=== PATIENT | female | born 1965 | race Caucasian/White ===

== ENCOUNTER 2020-05-04 17:55 | Observation (INO) | payer BC, SELFPAY ==
[2020-05-04 17:56] VITALS: BP 152/88; PULSE 92; PULSE 96; RESP 16; RESP 18; TEMP 35.9; O2SAT 95; O2SAT 96; BMI 45.4
--- NOTE | 2020-05-04 18:10 | ED.VIS.GEN ---
History of Present Illness Chief Complaint: Cellulitis Narrative: Patient presents with right lower extremity pain and edema that started earlier this morning she even had a temperature at home up to 103. She denies cough congestion abdominal pain or urinary symptoms. She has had similar symptoms in the past and had cellulitis and and that being hospitalized. She is not a diabetic. No known trauma. Past medical history: None Medications: Detrol Social history: Noncontributory Review of systems: All systems negative except as indicated General: Fever as in HPI Eyes: Denies: Visual changes - bilaterally ENT: Denies: Rhinorrhea, Sore throat Cardiovascular: Denies: Chest pain Respiratory: Denies: Dyspnea, Cough Gastrointestinal: Denies: Abdominal pain, Nausea, Vomiting Genitourinary: Denies: Dysuria Musculoskeletal: Right lower extremity pain and edema Skin: Rash as in HPI Neurological: Denies: Headache, no focal weakness Psych: Reports: negative Hematologic: Denies: Easy bruising, Easy bleeding Physical exam General: Well nourished, Well developed, she appears somewhat anxious Head: Normocephalic, Atraumatic Eyes: Conjunctiva not pale ENT: Moist mucous membranes Neck: Supple, Nontender, No lymphadenopathy Cardiovascular: Regular rate, Regular rhythm Respiratory: No distress, CTA bilaterally Abdomen: Soft, Nontender, Nondistended Back: Nontender, Normal Inspection. Negative for: CVA tenderness Extremities: Right lower extremity has erythema and swelling, there is quite a bit of calor. No crepitus. The cellulitis starts at the ankle and extends to about the knee. No current lymphangitic streaking. Skin: Cellulitis as above otherwise normal Neurological: Alert, Normal Strength, Normal Sensation Psychological: Slightly anxious Past Medical History - Allergies and Home Meds Allergies/Adverse Reactions: Allergies No Known Allergies Allergy (Verified 05/04/20 18:00) Primary Care Physician: Erickson Molina DO [Primary Care Provider] - Physical Exam Vital Signs/Narrative: Vital Signs Temp Pulse Resp BP Pulse Ox 05/04/20 17:56 96.7 F L 96 18 152/88 H 96 Diagnostic/Tx/Re-eval - Medical Decision Making Patient has only mild leukocytosis she was started on IV antibiotics DVT study is negative. Patient will be treated for IV antibiotic treatment ED Disposition - Plan for ED Patient: Disposition: Home or Assisted Living Diagnosis: Cellulitis Referrals: Erickson Molina DO [Primary Care Provider] -
--- NOTE | 2020-05-04 18:13 | US_ITS ---
STUDY: VENOUS DOPPLER ULTRASOUND - RIGHT LOWER EXTREMITY REASON FOR EXAM: Female, 54 years old. RT LOWER LEG CELLULITIS TODAY REDNESS TECHNIQUE: Ultrasound evaluation of the deep vein system to include diego-scale imaging and compression was performed. Diego-scale imaging and Doppler sonographic evaluation, including duplex spectral analysis and qualitative color flow sonography, was performed. COMPARISON: None. FINDINGS: Common femoral, femoral and popliteal veins are patent with no evidence of luminal thrombus. Deep venous structures respond normally to compression and augmentation maneuvers. Normal color Doppler. Visualized calf veins are patent. US/Venous Duplex Imag/Limited/Uni IMPRESSION: Normal venous Doppler ultrasound of the lower extremity. Electronically Signed: Adelina Logan MD at 19:57 EST Tel , Service support ,
[2020-05-04 18:38] LABS: Absolute Lymphocyte Count 2.51 X10^3/uL (0.83-4.51); Absolute Neutrophil Count 7.7 X10^3/uL (2.0-7.7); Basophil# 0.05 X10^3/uL; Basophil% 0.4 % (0-1); Eosinophil# 0.03 X10^3/uL; Eosinophils% 0.3 % (0-5); Hematocrit 42.9 % (37-47); Hemoglobin 14.6 g/dL (12.0-15.0); Lymphocyte # 2.51 X10^3/ul (4.0); Lymphocyte % 21.9 % (19-41); Mean Corpuscular Hgb 30.7 pg (27.0-32.0); Mean Corpuscular Volume 90.1 fL (81-99); Mean Platelet Vol. 9.5 fl (6.2-12.0); Monocyte# 1.09 X10^3/uL; Monocyte% 9.5 % (0-10); NRBC Flagged by Analyzer 0 % (0-5); Neutrophil % 67.4 % (47-70); Platelet Count 213 K/mm3 (150-450); RBC Distribution Width CV 12.3 % (11.6-14.6); RBC Distribution Width SD 40.6 fl (35.1-43.9); Red Blood Count 4.76 M/mm3 (4.2-5.4); White Blood Count 11.4 K/mm3 (4.4-11.0)
[2020-05-04 18:57] LABS: ALB/GLOB Ratio 0.8 RATIO (0.9-2.4); AST(SGOT) 16 U/L (15-37); Alanine Aminotransfer ALT/SGPT 87 U/L (13-56); Albumin, Serum 3.3 g/dL (3.2-5.0); Alkaline Phosphatase 106 U/L (45-117); Anion Gap 5 (5-15); BUN 10 mg/dL (7-18); BUN/Creat Ratio 11.3 RATIO (10-20); Chloride 104 mmol/L (98-107); Creatinine, Serum 0.89 mg/dL (0.55-1.02); EST Glomerular Filtration Rate 70 mL/min (>60); Est Glom Filt Rate - Afr Amer 85 mL/min (>60); Estimated Creatinine Clearance 66.07 ml/min; Glucose 381 mg/dL (74-106); Potassium 3.5 mmol/L (3.5-5.1); Protein, Total 7.3 g/dL (6.4-8.2); Sodium Level 134 mmol/L (136-145)
--- NOTE | 2020-05-04 19:39 | HP.PCM_ITS ---
History of Present Illness Date of Admission: 05/04/20 The patient is a 54 year old F with no significant PMH who was admitted via the ED on 05/04/2020 with a complaint of redness and pain of her left leg, and has progressed up to her knee. She had fever of ~100F at home, and review of systems was otherwise negative. Duplex of hte LE was negative. SHe has previously had cellulitis of the LLE before, and had to be admitted on antibiotics for 5 days. Review of systems was otherwise negative. In the ED, Vitals were temp of 96.7F, with ME of 96,. RR of 18 and BP of 152/88/ Chemistry was unrearkable, and CBC showed wbc of 11.4, but was otherwise unremarkable. As mentioned, duplex of the lower extremities were negative for any DVT. She is being admitted to be managed for cellulitis of the left lower extremity. Of note, she doesn't have a history of diabetes. [] Past Medical History Allergies No Known Allergies Allergy (Verified 05/04/20 18:00) Home Medications: Ambulatory Orders Medication Instructions Recorded Tolterodine Tartrate [Tolterodine 4 mg PO DAILY 05/04/20 Tartrate ER] Cephalexin [Keflex] 500 mg PO Q6 #28 cap 05/05/20 Surgical History: no surgical history Psychiatric History: No pertinent psych hx Lives: With Family Smoking Status: Never smoker Tobacco Use: Non-smoker Alcohol: None Drugs: None Review of Systems Constitutional: Reports: Fever. Denies: Chills, Malaise, Weakness, Weight Xiomara nge HEENT: Denies: Head Aches, Sinus Congestion, Sinus Drainage Cardiovascular: Denies: Chest Pain, Palpitations Respiratory: Denies: Cough, Shortness of Breath, Shortness of breath at rest, Sputum production Gastrointestinal: Denies: Abdominal Pain, Nausea, Vomiting Genitourinary: Denies: Dysuria Musculoskeletal: Denies: Joint Pain, Joint Tenderness Skin: Reports: - - redness and pain of LLE, with differential warmth Neurological: Denies: Numbness, Tingling, Focal weakness Psychiatric: Denies: Anxiety, Depression, Homicidal Ideations, Suicidal Ideations Hematologic/ Lymphatic: Denies: Easy Bruising, Easy Bleeding VTE Information - Inpt Only VTE Present on Admission: No VTE Pharm Prophylaxis ordered?: Yes Patient Problems: Active and Suspected Problems Cellulitis (Acute) - Physical Exam Vitals/I&O's: Vital Signs Temp Pulse Resp BP Pulse Ox 96.7 F L 96 18 152/88 H 96 05/04/20 17:56 05/04/20 17:56 05/04/20 17:56 05/04/20 17:56 05/04/20 17:56 Oxygen Delivery Method Room Air Weight: 281 lb 8.485 oz Body Mass Index (BMI) 45.4 General: Alert, Oriented x3, Cooperative HEENT: Atraumatic, PERRLA, EOMI, Normocephalic Neck: Supple, No JVD, Negative Carotid Bruits Lungs: Clear to auscultation, Normal air movement Cardiovascular: Regular rate, Regular Rhythm, Normal S1, Normal S2, No murmurs Abdomen: Bowel Sounds Present, Soft, Non Tender Extremities: No edema, Capillary Refill Less than 3 Seconds Skin: No rashes, No breakdown, - - LLE erythematous, differential warmth, tender from foot up to knee Musculoskeletal: No Tenderness to Palpation of Joints or Extremities Neurological: Cranial nerves II-XII grossly intact, Neuro grossly intact, Motor Exam 5/5 strength throughout Psych/Mental Status: Normal Affect, Appropriate, Alert and oriented to time, place, person, mood and affect Laboratory Results 05/04/20 18:30: WBC 11.4 H, RBC 4.76, Hgb 14.6, Hct 42.9, MCV 90.1, MCH 30.7, MCHC 34.0, RDW Std Deviation 40.6, RDW Coeff of Lencho 12.3, Plt Count 213, MPV 9.5, Immature Gran % (Auto) 0.500, Neut % (Auto) 67.4, Lymph % (Auto) 21.9, Worth % (Auto) 9.5, Eos % (Auto) 0.3, Baso % (Auto) 0.4, Absolute Neuts (auto) 7.7, Absolute Lymphs (auto) 2.51, Nucleated RBC % 0 05/04/20 18:30: Sodium 134 L, Potassium 3.5, Chloride 104, Carbon Dioxide 25.0, Anion Gap 5, BUN 10, Creatinine 0.89, Estim Creat Clear Calc 66.07, Est GFR (MDRD) Af Amer 85, Est GFR (MDRD) Non-Af 70, BUN/Creatinine Ratio 11.3, Glucose 381 H, Calcium 9.0, Total Bilirubin 1.10 H, AST 16, ALT 87 H, Alkaline Phosphatase 106, Total Protein 7.3, Albumin 3.3, Globulin 4.0, Albumin/Globulin Ratio 0.8 L Assessment/Plan All Active Problems Cellulitis (Acute) 54 y/oa dmitted with a complaint of redness and pain of LLE #Cellulitis of the LLE * Admit to MedSurg. * Will start on IV vancomycin. * Get blood cultures. * Tylenol for pain. * VT prophylaxis: Lovenox Inpatient E&M: 77038 Init Hosp L2
[2020-05-04 19:55] VITALS: BMI 45.4
[2020-05-04 20:00] VITALS: BP 124/69; PULSE 71; RESP 16; TEMP 36.8; O2SAT 97
[2020-05-04 20:04] VITALS: BMI 45.7
[2020-05-04 21:12] VITALS: BP 132/68; PULSE 80; RESP 16; TEMP 36.9; O2SAT 98
[2020-05-04] MEDS: 0.9% Normal Saline 1,000 ML 100 ML IV (21:42)
[2020-05-04] MEDS: 0.9% Saline Lock 10 ML Syringe IV (21:47)
[2020-05-04] MEDS: Acetaminophen 325 MG Tablet 650 MG PO (21:51)
[2020-05-04 23:59] VITALS: PULSE 73
[2020-05-05 03:00] VITALS: PULSE 71
[2020-05-05 03:12] VITALS: BP 121/69; PULSE 77; RESP 16; TEMP 36.9; O2SAT 98
[2020-05-05 05:53] LABS: Absolute Neutrophil Count 4.5 X10^3/uL (2.0-7.7); Basophil# 0.04 X10^3/uL; Basophil% 0.5 % (0-1); Eosinophil# 0.21 X10^3/uL; Eosinophils% 2.9 % (0-5); Hematocrit 40.6 % (37-47); Hemoglobin 13.1 g/dL (12.0-15.0); Lymphocyte % 23.3 % (19-41); Mean Corp Hgb Conc 32.3 g/dL (32-36); Mean Corpuscular Hgb 30.3 pg (27.0-32.0); Mean Platelet Vol. 9.5 fl (6.2-12.0); Monocyte# 0.88 X10^3/uL; Monocyte% 12.1 % (0-10); NRBC Flagged by Analyzer 0 % (0-5); Neutrophil # 4.45 X10^3/uL (2.7-7.7); Neutrophil % 60.9 % (47-70); Platelet Count 174 K/mm3 (150-450); RBC Distribution Width CV 12.4 % (11.6-14.6); RBC Distribution Width SD 43.2 fl (35.1-43.9); Red Blood Count 4.32 M/mm3 (4.2-5.4); White Blood Count 7.3 K/mm3 (4.4-11.0)
[2020-05-05 06:00] VITALS: PULSE 75
[2020-05-05 06:20] LABS: BUN 10 mg/dL (7-18); Creatinine, Serum 0.46 mg/dL (0.55-1.02); Estimated Creatinine Clearance 122.88 ml/min; Glucose 251 mg/dL (74-106)
[2020-05-05 06:21] LABS: Anion Gap 7 (5-15); BUN/Creat Ratio 21.5 RATIO (10-20); Calcium,Total 8.5 mg/dL (8.5-10.1); Chloride 106 mmol/L (98-107); EST Glomerular Filtration Rate 147 mL/min (>60); Est Glom Filt Rate - Afr Amer 178 mL/min (>60); Potassium 3.3 mmol/L (3.5-5.1); Sodium Level 139 mmol/L (136-145)
[2020-05-05 07:59] VITALS: PULSE 79
[2020-05-05 08:30] VITALS: BP 130/92; PULSE 80; RESP 18; TEMP 36.7; O2SAT 97
[2020-05-05] MEDS: Tolterodine Tartrate 4 MG CAP.SA PO (09:01)
--- NOTE | 2020-05-05 09:35 | NURSING ---
Was asked to see patient for redness to right lower leg. there are no wounds for wound care to address at this time. wound culture ordered, but there are no open areas to the right leg or foot. the redness appears to have improved according to the skin markings. can monitor as needed, but no need for wound care consult at this time.
--- NOTE | 2020-05-05 09:57 | PCM.DC ---
- Discharge Diagnoses Current Active Problems: Current Active and Chronic Problems Cellulitis (Acute) You will use the following diet at home:: No restrictions Discharge Activity: Return to Normal Activity Call your doctor if you observe: Fever of 101 or Higher, Shortness of breath, Dizziness, Fainting spells, Chest pain Allergies/Adverse Reactions: Allergies No Known Allergies Allergy (Verified 05/04/20 18:00) Medications to take at Discharge Tolterodine Tartrate [Tolterodine Tartrate ER] 4 mg PO DAILY 05/04/20 Cephalexin [Keflex] 500 mg PO Q6 #28 cap 05/05/20 The following prescriptions were given: Cephalexin [Keflex] 500 mg PO Q6 #28 cap Transmission Status: Pending to [facility]/pharmacy #[id number] Primary Care Physician: Erickson Molina DO [Primary Care Provider] - Please follow up with your Primary Care Physician in: 3-5 Days Test Results: Test results from this visit will be discussed in further detail at your follow-up appointment, if applicable. Proposed Discharge Date: 05/05/20
--- NOTE | 2020-05-05 09:58 | DS.PCM_ITS ---
<Lisseth Courtney PHYSICIAN COMPENSATION ANALYST - Last Filed: 05/05/20 10:17> Discharge Date and Diagnosis - Problem List Patient Problems: Active and Suspected Problems Cellulitis (Acute) Date of Admission: 05/04/20 Date of Discharge: 05/05/20 - Primary Discharge Diagnosis Acute Problems: Active Problems 1. Right lower extremity cellulitis Hospital Course and Treatment Imaging Results: Diagnostic Data Venous Duplex 05/04/20 18:13 IMPRESSION: Normal venous Doppler ultrasound of the lower extremity. Electronically Signed: Adelina Logan MD at 19:57 EST Tel , Service support , Consultations 05/04/20 21:12 Consult: Onc/Wound/ovens supervisor Routine Comment: Operations: None Procedures: None Summary of Care Provided: The patient is a 54 year old F who presents to the emergency room due to right lower extremity redness, warmth and fever. Patient denies right lower extremity injury or wound. She reports a history of right lower extremity cellulitis approximately 5 years ago. She does have history of right total knee replacement. Denies knee pain, redness appears distal to right knee. Right lower extremity duplex ultrasound negative for DVT. No fever during admission. Mild leukocytosis resolved. IV antibiotics during admission with transition to oral Keflex at discharge to complete course. Redness appears improving. Patient anxious to return home. Follow-up with PCP in 3 to 5 days. Patient seen and examined prior to discharge. Physical assessment as noted below. Patient is stable for discharge with follow up recommendations as noted above. This patient was seen by CELIA RodrigezC under the supervision of Dr. Padilla. Patient Problems: Active and Suspected Problems Cellulitis (Acute) - Physical Exam Vitals/I&O's: Vital Signs Temp Pulse Resp BP Pulse Ox 98.1 F 80 18 130/92 H 97 05/05/20 08:30 05/05/20 08:30 05/05/20 08:30 05/05/20 08:30 05/05/20 08:30 Oxygen Delivery Method Room Air Weight: 279 lb 1.683 oz Body Mass Index (BMI) 45.7 Intake and Output for Last 24 Hours 02/09/21 02/10/21 02/11/21 23:59 23:59 23:59 Intake Total 224 / 224 Output Total 0 / 0 Balance / 224 General: Alert, Oriented x3, Cooperative HEENT: Atraumatic, PERRLA, EOMI, Normocephalic Neck: Supple, No JVD, Negative Carotid Bruits Lungs: Clear to auscultation, Normal air movement Cardiovascular: Regular rate, Regular Rhythm, Normal S1, Normal S2, No murmurs Abdomen: Bowel Sounds Present, Soft, Non Tender, Obese Extremities: No clubbing, No cyanosis, Edema - RLE Skin: - - RLE erythema, no open wounds. Erythema from below knee to above ankle, improving. Musculoskeletal: No Tenderness to Palpation of Joints or Extremities Neurological: Cranial nerves II-XII grossly intact, Neuro grossly intact Psych/Mental Status: Normal Affect, Appropriate Laboratory Results 05/04/20 18:30: WBC 11.4 H, RBC 4.76, Hgb 14.6, Hct 42.9, MCV 90.1, MCH 30.7, MCHC 34.0, RDW Std Deviation 40.6, RDW Coeff of Lencho 12.3, Plt Count 213, MPV 9.5, Immature Gran % (Auto) 0.500, Neut % (Auto) 67.4, Lymph % (Auto) 21.9, Taliaferro % (Auto) 9.5, Eos % (Auto) 0.3, Baso % (Auto) 0.4, Absolute Neuts (auto) 7.7, Absolute Lymphs (auto) 2.51, Nucleated RBC % 0 05/04/20 18:30: Sodium 134 L, Potassium 3.5, Chloride 104, Carbon Dioxide 25.0, Anion Gap 5, BUN 10, Creatinine 0.89, Estim Creat Clear Calc 66.07, Est GFR (MDRD) Af Amer 85, Est GFR (MDRD) Non-Af 70, BUN/Creatinine Ratio 11.3, Glucose 381 H, Calcium 9.0, Total Bilirubin 1.10 H, AST 16, ALT 87 H, Alkaline Phosph atase 106, Total Protein 7.3, Albumin 3.3, Globulin 4.0, Albumin/Globulin Ratio 0.8 L 05/05/20 05:30: WBC 7.3, RBC 4.32, Hgb 13.1, Hct 40.6, MCV 94.0, MCH 30.3, MCHC 32.3, RDW Std Deviation 43.2, RDW Coeff of Lencho 12.4, Plt Count 174, MPV 9.5, Immature Gran % (Auto) 0.300, Neut % (Auto) 60.9, Lymph % (Auto) 23.3, Taliaferro % (Auto) 12.1 H, Eos % (Auto) 2.9, Baso % (Auto) 0.5, Absolute Neuts (auto) 4.5, Absolute Lymphs (auto) 1.70, Nucleated RBC % 0 05/05/20 05:30: Sodium 139, Potassium 3.3 L, Chloride 106, Carbon Dioxide 26.0, Anion Gap 7, BUN 10, Creatinine 0.46 L, Estim Creat Clear Calc 122.88, Est GFR (MDRD) Af Amer 178, Est GFR (MDRD) Non-Af 147, BUN/Creatinine Ratio 21.5 H, Glucose 251 H, Calcium 8.5 Current Medications Acetaminophen (Acetaminophen 325 Mg Tablet) 650 mg PO Q6H PRN PRN PRN Reason: Pain Score 1-10/Temp > 100.7 F Last Admin: 05/04/20 21:51 Dose: 650 mg Documented by: Ampicillin Sodium/Sulbactam (Sodium 3 gm/ Sodium Chloride) 112 mls @ 150 mls/hr IV Q6 [facility] Last Infusion: 05/05/20 06:01 Dose: Infused Documented by: Nitroglycerin (Nitroglycerin (Inpatient Use) 0.4 Mg Tab.Subl) 0.4 mg SUBLINGUAL Q5M PRN PRN Reason: CARDIAC/CHEST PAIN Ondansetron HCl (Ondansetron 4 Mg/2 Ml Vial) 4 mg IV Q8H PRN PRN PRN Reason: NAUSEA/VOMITING Sodium Chloride (0.9% Saline Lock 10 Ml Syringe) 10 - 40 ml IV UD PRN PRN Reason: SALINE FLUSH Last Admin: 05/04/20 21:47 Dose: 10 ml Documented by: Tolterodine Tartrate (Tolterodine Tartrate 4 Mg Cap.Sa) 4 mg PO DAILY [facility] Last Admin: 05/05/20 09:01 Dose: 4 mg Documented by: Discharge Diet: No Restrictions Discharge Activity: Return to Normal Activity Call your doctor if you observe: Fever of 101 or Higher, Shortness of breath, Dizziness, Fainting spells, Chest pain Home Medications: Medications to take at Discharge Tolterodine Tartrate [Tolterodine Tartrate ER] 4 mg PO DAILY 05/04/20 Cephalexin [Keflex] 500 mg PO Q6 #28 cap 05/05/20 Following Prescriptions Were Given to Patient: Cephalexin [Keflex] 500 mg PO Q6 #28 cap Transmission Status: Received by [facility]/pharmacy #[id number] Primary Care Physician: Erickson Molina DO [Primary Care Provider] - Please follow up with your Primary Care Physician in: 3-5 Days Disposition: Home Minutes spent on discharge:: 35 Patient Condition:: Stable Medical Necessity - Tobacco Use Smoking Status: Never smoker Tobacco Use: Non-smoker Meaningful Use Info Meaningful Use Diagnoses (Choose all that apply): None applicable <Stephen Padilla - Last Filed: 05/05/20 12:56> Discharge Date and Diagnosis - Primary Discharge Diagnosis Acute Problems: Active Problems Cellulitis (Acute) Hospital Course and Treatment Consultations 05/04/20 21:12 Consult: Onc/Wound/ovens supervisor Routine Comment: Summary of Care Provided: This patient was seen in conjunction with ANN-MARIE Rodrigez . I have independently interviewed and examined the patient and reviewed pertinent historical, laboratory, and other data. Please refer to ANN-MARIE Rodrigez note for details of this patient's presentation, findings, and recommendations. I have reviewed ANN-MARIE Rodrigez note and concur with documented findings. In brief, patient is a 58-year-old lady admitted with cellulitis involving the right lower extremity. Admitted to regular nursing for further management. Patient requested to be discharged at the following her admission. She was discharged home with Keflex. Patient was instructed to present back to the ED if symptoms worsened. - Physical Exam Vitals/I&O's: Vital Signs Temp Pulse Resp BP Pulse Ox 98.4 F 89 18 130/80 H 96 05/05/20 11:30 05/05/20 11:30 05/05/20 11:30 05/05/20 11:30 05/05/20 11:30 Oxygen Delivery Method Room Air Weight: 126.6 kg Body Mass Index (BMI) 45.7 Intake and Output for Last 24 Hours 05/03/20 05/04/20 05/05/20 23:59 23:59 23:59 Intake Total 54 / 54 1224 / 1224 Output Total 0 / 0 Balance 1224 / 1224 Laboratory Results 05/04/20 18:30: WBC 11.4 H, RBC 4.76, Hgb 14.6, Hct 42.9, MCV 90.1, MCH 30.7, MCHC 34.0, RDW Std Deviation 40.6, RDW Coeff of Lencho 12.3, Plt Count 213, MPV 9.5, Immature Gran % (Auto) 0.500, Neut % (Auto) 67.4, Lymph % (Auto) 21.9, Taliaferro % (Auto) 9.5, Eos % (Auto) 0.3, Baso % (Auto) 0.4, Absolute Neuts (auto) 7.7, Absolute Lymphs (auto) 2.51, Nucleated RBC % 0 05/04/20 18:30: Sodium 134 L, Potassium 3.5, Chloride 104, Carbon Dioxide 25.0, Anion Gap 5, BUN 10, Creatinine 0.89, Estim Creat Clear Calc 66.07, Est GFR (MDRD) Af Amer 85, Est GFR (MDRD) Non-Af 70, BUN/Creatinine Ratio 11.3, Glucose 381 H, Calcium 9.0, Total Bilirubin 1.10 H, AST 16, ALT 87 H, Alkaline Phosphatase 106, Total Protein 7.3, Albumin 3.3, Globulin 4.0, Albumin/Globulin Ratio 0.8 L 05/05/20 05:30: WBC 7.3, RBC 4.32, Hgb 13.1, Hct 40.6, MCV 94.0, MCH 30.3, MCHC 32.3, RDW Std Deviation 43.2, RDW Coeff of Lencho 12.4, Plt Count 174, MPV 9.5, Immature Gran % (Auto) 0.300, Neut % (Auto) 60.9, Lymph % (Auto) 23.3, Taliaferro % (Auto) 12.1 H, Eos % (Auto) 2.9, Baso % (Auto) 0.5, Absolute Neuts (auto) 4.5, Absolute Lymphs (auto) 1.70, Nucleated RBC % 0 05/05/20 05:30: Sodium 139, Potassium 3.3 L, Chloride 106, Carbon Dioxide 26.0, Anion Gap 7, BUN 10, Creatinine 0.46 L, Estim Creat Clear Calc 122.88, Est GFR (MDRD) Af Amer 178, Est GFR (MDRD) Non-Af 147, BUN/Creatinine Ratio 21.5 H, Glucose 251 H, Calcium 8.5 OBSV E&M: [id number] Observation care discharge
--- NOTE | 2020-05-05 11:27 | PHA.DC.MC ---
Pharmacy Service has performed discharge medication reconciliation and counseling for this patient. The patient was counseled on the following discharge medications and changes in medications for homegoing were reviewed. 1.KEFLEX The Reason for Use, instructions for use, and potential side effects were reviewed for all new medications. The patient's questions regarding all of their medications were answered. The patient was able to verbally demonstrate an understanding of their discharge medications. Home Medications Tolterodine Tartrate [Tolterodine Tartrate ER] 4 mg PO DAILY 05/04/20 Cephalexin [Keflex] 500 mg PO Q6 #28 cap 05/05/20 The patient's discharge medication list was reviewed for discrepancies and discrepancies were resolved. NOTE: Pt requested medication be sent to [facility] [place], rather than [facility]. Called [facility] and had medication filled at that location per patient request.
[2020-05-05 11:30] VITALS: BP 130/80; PULSE 89; RESP 18; TEMP 36.9; O2SAT 96
--- NOTE | 2020-05-05 11:32 | PCM.WORK.EX ---
Work/School Excuse Work/School Excuse for:: Patient Please excuse this person from:: Work From: 05/04/20 through: 05/08/20 - PCP follow up prior to return
--- NOTE | 2020-05-05 13:37 | NURSING ---
reviewed and agree with documentation by BRIE Roberts
== END 2020-05-05 11:44 | disposition home or self-care (01) ==
LOC: ED 19:51 → MS3 20:04
PROVIDERS: Admitting Provider Student in an Organized Health Care Education/Training Program; Emergency Provider Emergency Medicine; PCP Family Medicine; Visit Provider Internal Medicine
DX: L03.115 Cellulitis of right lower limb (principal); Z96.651 Presence of right artificial knee joint
CPT/HCPCS: 80048; 80053; 85025; 87040; 93971; 96361; 96365; 96366; 96367; 99218; 99285; J7030; A4216; G0378; J0295

== ENCOUNTER 2021-01-11 13:34 | Outpatient (CLI) | payer BC, SELFPAY ==
[2021-01-11 13:52] VITALS: BP 144/73; PULSE 85; RESP 16; TEMP 37.1; O2SAT 97; BMI 44.9
[2021-01-11] MEDS: 0.9% Saline Lock 10 ML Syringe IV (14:00)
[2021-01-11 14:40] VITALS: BP 147/87; PULSE 80; RESP 16; TEMP 36.7; O2SAT 97
[2021-01-11 15:43] VITALS: BP 140/76; PULSE 79; RESP 16; TEMP 37
== END 2021-01-11 15:43 | disposition home or self-care (01) ==
LOC: MS3OUT 13:35 → MS3 13:35
PROVIDERS: PCP Family Medicine; Referring Provider Nurse Practitioner Adult Health; Visit Provider Nurse Practitioner Adult Health
DX: Z23 Encounter for immunization (principal); U07.1 COVID-19
CPT/HCPCS: J7050; M0243; A4216; Q0244